=== PATIENT | female | born 1955 | race Caucasian/White ===

== ENCOUNTER → 2017-01-01 | Outpatient (CLI) | payer MEDICARE ==
--- NOTE | ~2017-01-01 | CR63 ---
[facility] A Service of [facility] & [facility] RADIOLOGY TEXT RESULTS PATIENT: RAFI MEKES LOCATION: [facility] : 59 UNIT #: [id number] AGE: [address]: Joselyn Ronquillo SEX: F ORDER DR: [id number] [facility] [address] [place], [place] [address] [id number] O MR#: [id number] Acc #: [id number] NAME: RAFI MEEKS : 1955 SEX: F STUDY DATE/TIME: UNIT: [facility] ROOM: STUDY DESCRIPTION: CR Chest 2 View Attending Physician: Joselyn Ronquillo A.P.R.N. Referring Physician: Joselyn Ronquillo A.P.R.N. Ordering Physician: Joselyn Ronquillo A.P.R.N. Primary Care Physician: Jimmy Little MEDICAL IMAGING REPORT This report is preliminary unless electronic signature is present EXAM Chest 2 views 01/01/2017 1232 hours HISTORY 61-year-old with history of COPD complaining of 2-week history of shortness of air, cough and left-sided chest pain. COMPARISON Chest CT 07/07/2014 FINDINGS Upright PA and lateral views of the chest demonstrate normal heart size. Aortic contours are normal. There is no definite mediastinal or hilar adenopathy. The lungs are well expanded and clear. No definite noncalcified nodule is seen. Calcified mediastinal nodes are unchanged. There is multilevel spurring in the mid to lower thoracic spine. IMPRESSION There are emphysematous and benign calcified granulomatous changes similar to 07/07/2014. No nodule or mass is seen. There is no evidence of pneumonia, edema or effusion. Dictated by... Eva Altamirano M.D. THIS IS AN ELECTRONICALLY VERIFIED REPORT Eva Altamirano M.D. at 01/01/2017 5:20 PM JONATHAN/rene TD: 01/01/2017 15:10 JOB #: [id number] MEDICAL IMAGING REPORT [facility] A Service of [facility] & [facility] RADIOLOGY TEXT RESULTS PATIENT: RAFI MEEKS LOCATION: [facility] : 59 UNIT #: [id number] AGE: [address]: Joselyn Ronquillo SEX: F ORDER DR: Page 1 of 1 COPY
[2017-01-01 12:17] LABS: ARTERIAL BLD GAS O2 SATURATION 82.3 % (90.0-100.0); ARTERIAL BLOOD GAS CARBOXY HB 4.8 %sat (0.0-9.0); ARTERIAL BLOOD GAS HCO3 30.6 mmol/L; ARTERIAL BLOOD GAS MET HB 0.8 %sat (0.0-2.0); ARTERIAL BLOOD GAS pH 7.393 (7.350-7.450)
[2017-01-01 12:18] LABS: ARTERIAL BLOOD GAS ALLEN TEST N; ARTERIAL BLOOD GAS ART SITE RIGHT RADIAL; ARTERIAL BLOOD GAS DELIVERY NASAL CANNULA; ARTERIAL BLOOD GAS PCO2 50.3 mmHg (35.0-45.0); ARTERIAL BLOOD GAS PO2 47.7 mmHg (80.0-100); ARTERIAL DRAW? YES
== END | disposition home or self-care (01) ==
LOC: CRC 11:04
PROVIDERS: Registered Nurse
DX: J96.11 Chronic respiratory failure with hypoxia (principal); J44.9 Chronic obstructive pulmonary disease, unspecified; J96.12 Chronic respiratory failure with hypercapnia; J47.9 Bronchiectasis, uncomplicated; Z99.81 Dependence on supplemental oxygen; J43.9 Emphysema, unspecified; J84.10 Pulmonary fibrosis, unspecified
CPT/HCPCS: 36600; 71020; 82803; 94060; 94726; 94729